=== PATIENT | female | born 2005 | race Caucasian/White ===

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

== ENCOUNTER → 2024-09-15 | Outpatient (CLI) | payer BC ==
[2024-09-15 12:42] LABS: EOSINOPHILS # (AUTO) 0.1 X10'3 (0-0.9); HEMOGLOBIN 13.7 g/dl (12.0-16.0); MONOCYTES # (AUTO) 0.5 X10'3 (0-0.9); RED CELL DISTRIBUTION WIDTH 13.5 % (11.5-14.5); WHITE BLOOD COUNT 6.7 X10'3 (4.5-11.0)
[2024-09-15 12:44] LABS: BASOPHILS # (AUTO) 0.1 X10'3 (0-0.2); BASOPHILS % (AUTO) 0.8 % (0-1); EOSINOPHILS % (AUTO) 1.5 % (0-6); HEMATOCRIT 40.4 % (35.0-45.0); LYMPHOCYTES # (AUTO) 2.1 X10'3 (1.1-4.8); LYMPHOCYTES % (AUTO) 31.7 % (21-51); MEAN CORPUSCULAR HEMOGLOBIN 28.3 PG (27.0-31.0); MEAN CORPUSCULAR VOLUME 83.2 FL (78-98); MEAN PLATELET VOLUME 7.4 FL (7.4-10.4); MONOCYTES % (AUTO) 6.9 % (2-12); NEUTROPHILS # (AUTO) 3.9 X10'3 (1.8-7.7); NEUTROPHILS % (AUTO) 59.1 % (42-75); PLATELET COUNT 394 X10'3 (140-440); RED BLOOD COUNT 4.85 X10'6 (4.20-5.60)
[2024-09-15 12:58] LABS: ALANINE AMINOTRANSFERASE 22 U/L (12-78); ALKALINE PHOSPHATASE 87 IU/L (20-180); ANION GAP 6 (8-16); ASPARTATE AMINO TRANSFERASE 14 U/L (10-37); BILIRUBIN,TOTAL 0.7 MG/DL (0.1-1.0); BLOOD UREA NITROGEN 11 MG/DL (7-18); BUN/CREATININE RATIO 18.3 (10.0-20.0); CALCIUM 8.8 MG/DL (8.5-10.1); CHLORIDE 105 MMOL/L (99-107); CHOL/HDL RATIO 2.2 (0.00-4.99); CHOLESTEROL 151 MG/DL (0-200); FREE T4 (FREE THYROXINE) 0.91 NG/DL (0.73-1.40); GLUCOSE 81 MG/DL (70-104); HDL CHOLESTEROL 69 MG/DL (35-60); LDL CHOLESTEROL 74 MG/DL (50-100); SODIUM 139 MMOL/L (135-145); THYROID STIMULATING HORMONE 0.01 ulU/ml (0.34-4.50); TOTAL CARBON DIOXIDE 28.1 MMOL/L (24-32); TOTAL PROTEIN 8.1 G/DL (6.4-8.2); TRIGLYCERIDES 37 MG/DL (20-135); eGFR > 90 ML/MIN
[2024-09-15 14:03] LABS: INR 1.1 INR; PROTHROMBIN TIME 11.2 SECONDS (9.0-12.0)
== END | disposition home or self-care (01) ==
LOC: LAB 11:36
PROVIDERS: ATTEND Nurse Practitioner Family
DX: Z01.812 Encounter for preprocedural laboratory examination (principal); M26.02 Maxillary hypoplasia
CPT/HCPCS: 36415; 80053; 80061; 84439; 84443; 84480; 84481; 85025; 85610

== ENCOUNTER 2025-03-05 10:13 | Outpatient (CLI) | payer BC ==
[2025-03-06 13:16] LABS: DEHYDROEPIANDROSTERONE SULFATE 241.0 ug/dL (110.0-431.7); ESTRADIOL 54.3 pg/mL (.); FSH, SERUM 3.7 mIU/mL (.); LUTEINIZING HORMONE 11.3 mIU/mL (.); PROLACTIN 18.7 ng/mL (4.8-33.4); TESTOSTERONE, SERUM 36 ng/dL (13-71); THIIODOTHRONINE, FREE, SERUM 3.5 pg/mL (2.0-4.4); THYROID PEROXIDASE AB <9 IU/mL (0-34)
== END 2025-03-05 23:59 | disposition home or self-care (01) ==
LOC: RAD 10:13
PROVIDERS: ATTEND Nurse Practitioner Family
DX: E05.90 Thyrotoxicosis, unspecified without thyrotoxic crisis or storm (principal); E28.2 Polycystic ovarian syndrome; E01.0 Iodine-deficiency related diffuse (endemic) goiter
CPT/HCPCS: 36415; 82627; 82670; 83001; 83002; 84146; 84402; 84403; 84439; 84443; 84445; 84481; 86376

== ENCOUNTER 2025-04-11 09:55 | Outpatient (CLI) | payer BC ==
--- NOTE | 2025-04-12 12:23 | RADIOLOGY REPORT ---
PROCEDURE: KS NM THYROID SCAN Exam Date: 04/11/2025 03:02 PM Reason for study/Clinical History: THYROTOXICOSIS, UNSP WITHOUT THYROTOXIC CRISIS OR STORM Comparison Study: None I-123 Thyroid [Uptake and] Scan TECHNIQUE: The patient ingested a capsule containing 222.5 uCi of Iodine-123. Uptake in the neck and thigh was measured at 6 and 24 hours after ingestion. Images of the thyroid were obtained in multiple projections were obtained at 6 hours. FINDINGS: There is normal symmetric appearance of the thyroid gland and homogeneous uptake of radioiodine. Radioiodine uptake at 6 hours is 10.8 % (normal is 0-15%). The 24-hour uptake is 18.5 % (normal is 10-35%). IMPRESSION: Unremarkable thyroid uptake and scintigraphy as described above.
== END 2025-04-11 23:59 | disposition home or self-care (01) ==
LOC: NM 09:55
PROVIDERS: ATTEND Internal Medicine Endocrinology, Diabetes & Metabolism
DX: E05.90 Thyrotoxicosis, unspecified without thyrotoxic crisis or storm (principal)
CPT/HCPCS: 78014; A9516